=== PATIENT | male | born 1940 | race Caucasian/White ===

== ENCOUNTER 2017-03-18 11:57 | Emergency (ER) | payer OTHER, MEDICARE ==
[~2017-03-18] VITALS: Ht 180.3 cm; Wt 84.5 kg
[2017-03-18 14:47] LABS: HEMATOCRIT 32.6 % (38.0-50.0); MCH 30.4 PG (29.0-34.0); MCHC 33.1 G/DL (30.0-36.0); MCV 91.8 FL (86-99); MEAN PLAT.VOLUME 11.9 uM^3 (9.0-12.4); PLATELET COUNT 163 K/uL (156-360); RBC DIS.WIDTH-CV 15.5 % (11.8-14.6); RBC DIS.WIDTH-SD 52.4 % (39-53); RED BLOOD COUNT 3.55 M/uL (4.00-5.50); WHITE BLOOD COUNT 6.8 K/uL (4.1-10.2)
[2017-03-18 14:58] LABS: CHLORIDE 104 mEq/L (99-109); POTASSIUM 3.7 mEq/L (3.7-5.4); SODIUM 138 mEq/L (136-147)
[2017-03-18 15:00] LABS: GLUCOSE 115 mg/dL (70-99)
[2017-03-18 15:01] LABS: ANION GAP 6 MEQ/L (2-14)
[2017-03-18 15:02] LABS: TOTAL BILIRUBIN 0.5 mg/dL (0.0-1.0)
[2017-03-18 15:04] LABS: ALKALINE PHOSPHATASE 52 IU/L (3-129); GFR ESTIMATE (CALCULATED) 42 mL/min/
[2017-03-18 15:05] LABS: UREA NITROGEN (BUN) 34 mg/dL (9-23)
[2017-03-18 15:07] LABS: CREATINE KINASE 80 IU/L (1-294); TOTAL CK 80 IU/L (1-294)
[2017-03-18 15:08] LABS: TROP-I INTERPRETATION NEGATIVE; TROPONIN-I < 0.01 ng/mL (0.0-0.30)
[2017-03-18 15:13] LABS: CK-MB 1.5 ng/mL (0.0-4.9)
[2017-03-18 16:11] LABS: ADD MIUA? NO; BILIRUBIN NEGATIVE; BLOOD NEGATIVE; COLOR YELLOW ((YELLOW)); GLUCOSE (STRIP) 50; KETONES NEGATIVE; LEUKOCYTES NEGATIVE; NITRITE NEGATIVE; PROTEIN (STRIP) NEGATIVE; UROBILINOGEN 0.2 MG/DL (0.2-1.0)
[2017-03-18 19:42] VITALS: BP 159/91
== END 2017-03-18 19:43 ==
LOC: EDBD 11:57 → EME 11:57
PROVIDERS: Emergency Medicine
DX: S01.81XA Laceration without foreign body of other part of head, initial encounter (principal); W18.30XA Fall on same level, unspecified, initial encounter; Y92.129 Unspecified place in nursing home as the place of occurrence of the external cause; F03.90 Unspecified dementia, unspecified severity, without behavioral disturbance, psychotic disturbance, mood disturbance, and anxiety; E78.5 Hyperlipidemia, unspecified; I10 Essential (primary) hypertension; K21.9 Gastro-esophageal reflux disease without esophagitis; E11.9 Type 2 diabetes mellitus without complications; Z86.73 Personal history of transient ischemic attack (TIA), and cerebral infarction without residual deficits
CPT/HCPCS: 70450; 71010; 72125; 80053; 81003; 82550; 82553; 84484; 85027; 93005; 99281; 99285